=== PATIENT | female | born 1960 | race Two or more races ===

== ENCOUNTER 2018-11-04 10:57 | Emergency (ER) | payer MEDICAID ==
[~2018-11-04] VITALS: Ht 177.8 cm; Wt 54.0 kg
[2018-11-04 11:08] VITALS: BP 106/60
--- NOTE | 2018-11-04 11:10 | NUR ---
PATIENT AMBULATED TO BED 3.
--- NOTE | 2018-11-04 11:18 | NUR ---
C/O PAIN TO R GREAT TOE X10 DAYS, 10/10 SHARP/THROBBING PAIN. DENIES N/V/D/FEVER. PT HAS TAKEN IBUPROFEN 800MG WITH LITTLE RELIEF, LAST TAKEN YESTERDAY. R GREAT TOE APPEARS RED, SWOLLEN AROUND NAIL BED. YELLOW DRAINAGE NOTED. M/S FUNCTION INTACT, DENIES NUMBNESS/TINGLING. BED IN LOW POSITION, SIDE RAIL UP X1.
--- NOTE | 2018-11-04 11:30 | NUR ---
DR. CARPENTER AT BEDSIDE
--- NOTE | 2018-11-04 11:40 | NUR ---
LAC TRAY WITH STERILE WATER, BETADINE & STERILE GLOVED PLACED AT BEDSIDE PER ERMD REQUEST
[2018-11-04] MEDS ORDERED: LIDOCAINE MPF 1% 5mL VIAL INJ ONE ×2 (11:45→12:05)
--- NOTE | 2018-11-04 11:45 | NUR ---
LIDOCAINE AND ETHYL CHLORIDE PLACED AT BEDSIDE FOR DR. CARPENTER TO ADMINISTER
[2018-11-04] MEDS ORDERED: ETHYL CHLORIDE 105 ML SPR TP ONE ×2 (11:50→12:02)
[2018-11-04] MEDS ORDERED: BACITRACIN OINT 500 UNITS/GM PKT TP ONE ×2 (12:05→12:18)
[2018-11-04 12:21] VITALS: BP 106/60
--- NOTE | 2018-11-04 12:22 | NUR ---
Patient discharged with v/s stable. Written and verbal after care instructions given and explained. Patient alert, oriented and verbalized understanding of instructions. Ambulatory with steady gait. All questions addressed prior to discharge. ID band removed. Patient advised to follow up with PMD. Rx of NAPROSYN AND KEFLEX given. Patient educated on indication of medication including possible reaction and side effects. Opportunity to ask questions provided and answered.
== END 2018-11-04 12:16 | disposition home or self-care (01) ==
LOC: MED 10:57
DX: L03.031 Cellulitis of right toe (principal); L60.0 Ingrowing nail; Z88.6 Allergy status to analgesic agent; Z88.8 Allergy status to other drugs, medicaments and biological substances
CPT/HCPCS: 11730; 99283; J2001

== ENCOUNTER 2018-11-06 13:20 | Emergency (ER) | payer MEDICAID ==
[~2018-11-06] VITALS: Ht 152.4 cm; Wt 52.2 kg
[2018-11-06 13:28] VITALS: BP 117/58
--- NOTE | 2018-11-06 13:38 | NUR ---
BIB SISTER FOR RECHECK OF RT BIG TOE REMOVAL ON 11/04/18 D/T [facility] W/ PAIN 7 HX; DM.PATIENT STATES PAIN OF 7/10 AT THIS TIME; PATIENT POSITIONED FOR COMFORT; HOB ELEVATED; BEDRAILS UP X1; BED DOWN. ER MD MADE AWARE OF PT STATUS.
--- NOTE | 2018-11-06 14:00 | NUR ---
R BIG TOE WOUND CLEANED & APPLIED WITH BACITRACIN.
[2018-11-06] MEDS ORDERED: BACITRACIN OINT 500 UNITS/GM PKT TP ONE (14:11)
[2018-11-06 14:18] VITALS: BP 119/61
== END 2018-11-06 14:18 | disposition home or self-care (01) ==
LOC: MED 13:20
DX: L03.031 Cellulitis of right toe (principal); E11.9 Type 2 diabetes mellitus without complications; Z88.6 Allergy status to analgesic agent; Z88.8 Allergy status to other drugs, medicaments and biological substances
CPT/HCPCS: 99283

== ENCOUNTER 2019-07-14 16:32 | Emergency (ER) | payer SELFPAY ==
[~2019-07-14] VITALS: Ht 152.4 cm; Wt 68.0 kg
[2019-07-14 16:40] VITALS: BP 111/72
--- NOTE | 2019-07-14 17:14 | NUR ---
Patient ambulated to bed 9. RN evaluating patient at bedside.
--- NOTE | 2019-07-14 17:30 | NUR ---
58/F PRESENTS TO ED, C/O COUGH, CONGESTION X1 MONTH. REPORTS PLEURITIC CP RADIATING TO UPPER BACK AND L SIDE OF ABD, EXACERBATION WITH COUGHING. DENIES FEVER/CHILLS, N/V. PT AWAKE AND ALERT, SKIN NORMAL COLOR WARM AND DRY, RR EVEN AND UNLABORED. LUNG SOUNDS CLEAR BL. S1S2 PRESENT. HX DM RX METFORMIN, COUGH MEDICINE WITHOUT RELIEF.
[2019-07-14] MEDS ORDERED: KETOROLAC 30 MG/ML VIAL IM ONE (18:35)
[2019-07-14] MEDS ORDERED: DEXAMETHASONE 10 MG/ML VIAL IM ONE (18:35)
[2019-07-14 18:57] VITALS: BP 111/72
--- NOTE | 2019-07-14 18:57 | NUR ---
Patient discharged with v/s stable. Written and verbal after care instructions given and explained. Patient alert, oriented and verbalized understanding of instructions. Ambulatory with steady gait. All questions addressed prior to discharge. ID band removed. Patient advised to follow up with PMD. Rx of ALBUTEROL,PROMETHAZINE,IBUPROFEN,PREDNISONE given. Patient educated on indication of medication including possible reaction and side effects. Opportunity to ask questions provided and answered.
== END 2019-07-14 18:57 | disposition home or self-care (01) ==
LOC: MED 16:32
DX: J40 Bronchitis, not specified as acute or chronic (principal); E11.9 Type 2 diabetes mellitus without complications; Z88.6 Allergy status to analgesic agent; Z88.8 Allergy status to other drugs, medicaments and biological substances
CPT/HCPCS: 71045; 96372; 99283; J1100; J1885